=== PATIENT | male | born 1960 | race Caucasian/White ===

== ENCOUNTER 2022-04-12 13:48 | Inpatient (IN) | payer MEDICARE, MEDICAID ==
[~2022-04-12] VITALS: Ht 180.3 cm; Wt 68.9 kg
[~2022-04-12 13:48] MED LIST: CATAPRES 0.1MG0.1 MG PO; CELEXA40 MG PO; DEPAKOTE ER 50500 MG PO; HALDOL 2MG T2 MG/TAB PO; HALDOL 5MG T5 MG/TAB PO; KLONOPIN 1MG1 MG PO; ZYPREXA20 MG PO
[2022-04-12 14:48] LABS: ARTERIAL BLD GAS O2 SATURATION 94.2 % (92-100); ARTERIAL BLOOD GAS BASE EXCESS 4.6 (-2-2); ARTERIAL BLOOD GAS HCO3 31.3 meq/L (22-26); ARTERIAL BLOOD GAS PCO2 56.5 mmHg (35-45); ARTERIAL BLOOD GAS PO2 80.4 mmHg (80-100); ARTERIAL BLOOD GAS pH 7.36 (7.35-7.45)
[2022-04-12 14:56] LABS: ALBUMIN 3.3 gm/dL (3.4-4.8); BILIRUBIN,TOTAL 0.2 mg/dL (0.2-1.2); CALCIUM 9.3 mg/dL (8.4-10.2); CREATININE, serum 0.74 mg/dL (0.72-1.25); POTASSIUM 4.2 mmol/L (3.5-4.5); TOTAL PROTEIN 8.2 gm/dL (6.2-8.1)
[2022-04-12 15:02] LABS: TROPONIN-I 0.018 ng/mL (0.00-0.033)
[2022-04-12 15:05] LABS: BASO % 0.2 % (0.0-2.0); EOS % 0.2 % (0.0-4.0); GRAN # 4.5 K/mm3 (1.4-6.5); GRAN % 79.2 % (42.2-75.2); HEMOGLOBIN 10.3 g/dl (13.5-18.0); LYMPH # 0.3 K/mm3 (1.2-3.4); LYMPH % 4.4 % (20.0-51.0); MEAN CELL VOLUME 84 fl (80.0-100.0); MEAN CORPUSCULAR HEMOGLOBIN 27 pg (27-31); MEAN CORPUSCULAR HGB CONC 32 g/dl (33.0-37.0); MEAN PLATELET VOLUME 9.6 fl (7.4-10.4); MONO # 0.9 K/mm3 (0.1-0.6); MONO % 15.5 % (1.7-9.3); PLATELET COUNT 159 K/mm3 (130-400); RED BLOOD COUNT 3.89 M/mm3 (4.20-5.60); REDCELL DISTRIBUTION WIDTH-CV 16.7 % (11.5-14.5)
[2022-04-12 15:06] LABS: HEMATOCRIT 32.7 % (42.0-52.0)
[2022-04-12] MEDS ORDERED: PRILOSEC 20MG20 MG PO (16:54)
[2022-04-12] MEDS ORDERED: DESYREL 50MG50 MG PO (16:55)
[2022-04-12] MEDS ORDERED: MELATIN 3 MG-11 TAB PO (16:55)
--- NOTE | 2022-04-12 17:45 | NUR ---
arrived on unit per stretcher, stood up from stretcher and took two steps to bed,
[2022-04-12 17:46] VITALS: BP 125/62; PULSE 81; TEMP 98
[2022-04-12] MEDS ORDERED: CATAPRES 0.1MG0.1 MG PO (18:23)
--- NOTE | 2022-04-12 18:45 | NUR ---
sitting up in bed eating supper, caregiver remains at bedside and is assisting him, the caregiver assisted him up to bathroom earlier and he voided, bedside shift report given to JARET Gonzalez
[2022-04-12 19:44] VITALS: BP 137/73; PULSE 71; TEMP 97.6
--- NOTE | 2022-04-12 21:45 | NUR ---
Patient alert and has a developmental delay and has a paper bag as his comfort item that he always needs near by; head to toe assessment done, see shift assessment, looks comfortable and doesn't look like he's in pain or short of air, remains on oxygen at 2LPM, call light within reach, fall precautions in place.
[2022-04-12 23:40] VITALS: BP 151/90; PULSE 88; TEMP 98.4
[2022-04-13 02:59] VITALS: BP 165/84; PULSE 97; TEMP 103
--- NOTE | 2022-04-13 03:25 | NUR ---
Called Emelyn, the PA d/t patient's temp is 103.
--- NOTE | 2022-04-13 03:50 | NUR ---
Called Emelyn the PA at this time d/t patient is agitated, always asking for a pop, and call light always goes off, got an order for seroquel.
--- NOTE | 2022-04-13 03:50 | NUR ---
Called Emelyn, the PA at this time d/t patient is agitated, keeps asking for a pop, and the call light always goes off, got an order for Ativan.
[2022-04-13 04:54] VITALS: TEMP 99.8
[2022-04-13 06:57] LABS: CALCIUM 7.7 mg/dL (8.4-10.2); CREATININE, serum 0.56 mg/dL (0.72-1.25); POTASSIUM 4.1 mmol/L (3.5-4.5)
[2022-04-13 07:00] LABS: MEAN CELL VOLUME 86 fl (80.0-100.0); MEAN CORPUSCULAR HGB CONC 31 g/dl (33.0-37.0); MEAN PLATELET VOLUME 10.7 fl (7.4-10.4); PLATELET COUNT 139 K/mm3 (130-400); RED BLOOD COUNT 3.45 M/mm3 (4.20-5.60); REDCELL DISTRIBUTION WIDTH-CV 16.5 % (11.5-14.5)
[2022-04-13 07:09] LABS: HEMATOCRIT 29.7 % (42.0-52.0); HEMOGLOBIN 9.2 g/dl (13.5-18.0); MEAN CORPUSCULAR HEMOGLOBIN 27 pg (27-31)
[2022-04-13 08:00] VITALS: BP 174/77; PULSE 94
[2022-04-13 08:46] LABS: ANISOCYTOSIS 1+; BAND 13 % (0-10); HYPOCHROMIA 3+; LYMPHOCYTE 3 % (20.0-51.0); METAMYELOCYTE 1 % (0-0); NEUTROPHILS 60 % (42.0-75.2)
[2022-04-13 12:45] VITALS: BP 147/91; PULSE 83; TEMP 100
--- NOTE | 2022-04-13 14:13 | NUR ---
The patient resides at the alf: [facility]. VIVIANA met with the patient's auto damage estimator, Theresa (ph#[phone]), from [facility]. She states that the patient is normally independent with ADLs at the alf, but has to be monitored. She states that the patient does have a guardian, Vasu Harley (ph#[phone]). Theresa states that she will have [facility] fax a copy of the court document to the surgical unit. She states that we can contact her, when the patient is ready to discharge. The patient's PCP is Dr. Ean Coughlin. VIVIANA contacted Vasu "Trinh" Cricket. Trinh states that she is not related to the patient and is just a court appointed guardian. She confirms that the plan is for the patient to return back to [facility] upon discharge. VIVIANA faxed updates to [facility] Fx#[phone]. *Discharge plan: [facility]*
[2022-04-13 15:44] VITALS: BP 152/82; PULSE 98; TEMP 101.2
--- NOTE | 2022-04-13 16:24 | NUR ---
PATIENT RUNNING LOW GRADE TEMP 100.0. TYLENOL 625 MG ADMINISTERED. WILL RECHECK TEMP
--- NOTE | 2022-04-13 20:04 | NUR ---
Patient remains to be on oxygen at 3LPM via nasal prong, VSS, head to toe assessment done, continuous to be getting out of bed, took HS meds without difficulty with pudding, fall precautions in place, bed alarm on, with tele sitter.
[2022-04-13 20:05] VITALS: BP 149/85; PULSE 91; TEMP 98.5
--- NOTE | 2022-04-14 00:49 | NUR ---
Patient resting in bed with eyes closed, oxygen saturation of 94% at this time.
[2022-04-14 05:17] VITALS: BP 95/53; PULSE 75; TEMP 99.1
[2022-04-14 07:06] LABS: BASO % 0.4 % (0.0-2.0); GRAN # 3.4 K/mm3 (1.4-6.5); GRAN % 67.6 % (42.2-75.2); LYMPH # 0.8 K/mm3 (1.2-3.4); LYMPH % 16.1 % (20.0-51.0); MEAN CELL VOLUME 85 fl (80.0-100.0); MEAN CORPUSCULAR HGB CONC 31 g/dl (33.0-37.0); MEAN PLATELET VOLUME 10.7 fl (7.4-10.4); MONO # 0.8 K/mm3 (0.1-0.6); MONO % 15.9 % (1.7-9.3); PLATELET COUNT 141 K/mm3 (130-400); RED BLOOD COUNT 3.66 M/mm3 (4.20-5.60); REDCELL DISTRIBUTION WIDTH-CV 16.4 % (11.5-14.5)
[2022-04-14 07:08] LABS: HEMOGLOBIN 9.7 g/dl (13.5-18.0); MEAN CORPUSCULAR HEMOGLOBIN 27 pg (27-31)
[2022-04-14 07:29] LABS: CALCIUM 7.9 mg/dL (8.4-10.2); CREATININE, serum 0.62 mg/dL (0.72-1.25); POTASSIUM 4.2 mmol/L (3.5-4.5)
[2022-04-14 08:37] VITALS: BP 130/60; PULSE 60; TEMP 97.6
--- NOTE | 2022-04-14 11:48 | NUR ---
SW faxed updates to [facility].
[2022-04-14 13:40] VITALS: BP 140/58; PULSE 54; TEMP 98.6
[2022-04-14 17:13] VITALS: BP 135/50; PULSE 52; TEMP 98.6
[2022-04-14 17:52] VITALS: BP 147/94; PULSE 97
[2022-04-14 19:25] VITALS: BP 144/93; PULSE 102; TEMP 98.6
--- NOTE | 2022-04-14 20:00 | NUR ---
Patient still trying to get out of the bed, HS meds given with chocolate pudding and took them without any difficulty, still on 4LPM via nasal prong, fall precautions in place, bed alarm on.
[2022-04-15] VITALS (409 sets, daily range): BP systolic 113–148; BP diastolic 66–99; PULSE 45–87; TEMP 97.7–98.7; O2SAT 76–100
--- NOTE | 2022-04-15 03:04 | NUR ---
Patient resting in bed, eyes closed, bed alarm on.
[2022-04-15 06:36] LABS: EOS % 0.6 % (0.0-4.0); LYMPH % 27.8 % (20.0-51.0); MEAN CELL VOLUME 87 fl (80.0-100.0); MEAN CORPUSCULAR HGB CONC 31 g/dl (33.0-37.0); MEAN PLATELET VOLUME 10.3 fl (7.4-10.4); MONO # 0.5 K/mm3 (0.1-0.6); MONO % 13.3 % (1.7-9.3); PLATELET COUNT 151 K/mm3 (130-400); RED BLOOD COUNT 3.53 M/mm3 (4.20-5.60); REDCELL DISTRIBUTION WIDTH-CV 15.9 % (11.5-14.5)
[2022-04-15 06:37] LABS: HEMATOCRIT 30.6 % (42.0-52.0); HEMOGLOBIN 9.4 g/dl (13.5-18.0); MEAN CORPUSCULAR HEMOGLOBIN 27 pg (27-31)
[2022-04-15 06:44] LABS: CALCIUM 8.1 mg/dL (8.4-10.2); CREATININE, serum 0.56 mg/dL (0.72-1.25); POTASSIUM 4.5 mmol/L (3.5-4.5)
--- NOTE | 2022-04-15 07:14 | NUR ---
Called Dr. Kaye and could not get a hold of her. Left a message for a critical result of chloride.
[2022-04-15 09:51] LABS: ARTERIAL BLD GAS O2 SATURATION 93.8 % (92-100); ARTERIAL BLD GAS TCO2 CT 43.2; ARTERIAL BLOOD GAS HCO3 40.8 meq/L (22-26); ARTERIAL BLOOD GAS PO2 73.9 mmHg (80-100); ARTERIAL BLOOD GAS pH 7.32 (7.35-7.45)
[2022-04-15 09:52] LABS: ARTERIAL BLOOD GAS PCO2 80.2 mmHg (35-45)
--- NOTE | 2022-04-15 13:35 | NUR ---
PATIENT ALERT TO SELF. PATIENT IN BED WITH O2 APPLIED. ASSESSMENT PERFORMED. AM MEDS ADMINISTERED. PRODUCTIVE COUGH, LUNGS WITH INS/EXP WHEEZING. PATIENT IN NO APPARENT PAIN. DIETARY SWITCHED DIET TO PUREED WITH THIN LIQUIDS (SMALL SIPS AT A TIME). PATIENT IN ROOM WITH TELESITTER AND PCT SITTING.
--- NOTE | 2022-04-15 15:20 | NUR ---
PT ARRIVED TO ICU 7, MINIMALLY VERBAL, REPETITIVE WITH A FEW WORDS, UNABLE TO DETERMINE ORIENTATION. PT IS ALERT. PT IS FROM [facility], HAS SOME COGNITIVE DELAYS. PT NEEDS CONSTANT REDIRECTION TO REMAIN IN BED AND ON POC. PT ARRIVES WITHOUT IV ACCESS, KATIE IS PREPPING FOR PICC PLACEMENT. MEDIA INTERN ARRIVED WITH PT TO SIT.
[2022-04-15 20:03] LABS: ARTERIAL BLOOD GAS pH 7.37 (7.35-7.45)
[2022-04-15 20:04] LABS: ARTERIAL BLD GAS O2 SATURATION 88.5 % (92-100); ARTERIAL BLOOD GAS BASE EXCESS 15.3 (-2-2); ARTERIAL BLOOD GAS HCO3 43.8 meq/L (22-26); ARTERIAL BLOOD GAS PCO2 78.4 mmHg (35-45); ARTERIAL BLOOD GAS PO2 58.6 mmHg (80-100)
--- NOTE | 2022-04-15 20:46 | NUR ---
RECEIVED REPORT FROM DAY SHIFT NURSE. PT IS RESTING IN BED. HR WAS LOW AND PT WAS MODERATELY SEDATED NURSE TITRATED PRECEDEX DOWN. OTHER VITALS ARE STABLE AT THIS TIME. WILL CONTINUE TO MONTIOR PT THROUGHOUT THE SHIFT.
[2022-04-15 20:55] LABS: ARTERIAL BLD GAS O2 SATURATION 99.6 % (92-100); ARTERIAL BLD GAS TCO2 CT 43.3; ARTERIAL BLOOD GAS BASE EXCESS 11.4 (-2-2); ARTERIAL BLOOD GAS HCO3 40.7 meq/L (22-26)
[2022-04-15 20:56] LABS: ARTERIAL BLOOD GAS PCO2 84.1 mmHg (35-45); ARTERIAL BLOOD GAS PO2 388.6 mmHg (80-100)
[2022-04-16] VITALS (1239 sets, daily range): BP systolic 78–136; BP diastolic 58–91; PULSE 46–69; TEMP 96.3–97.5; O2SAT 74–100
[2022-04-16 00:04] LABS: ARTERIAL BLD GAS O2 SATURATION 98.5 % (92-100); ARTERIAL BLD GAS TCO2 CT 39.5; ARTERIAL BLOOD GAS HCO3 38.2 meq/L (22-26); ARTERIAL BLOOD GAS PCO2 41.1 mmHg (35-45); ARTERIAL BLOOD GAS PO2 107.2 mmHg (80-100); ARTERIAL BLOOD GAS pH 7.59 (7.35-7.45)
--- NOTE | 2022-04-16 03:26 | NUR ---
2034 ABG SHOWED INCREASED CO2 LEVELS WHILE ON THE BIPAP. HOSPITALIST WAS NOTIFIED. WANTING TO INTUBATE DUE TO THE INCREASE CO2. 2132 ANESTHESIA WAS NOTIFIED OF PLAN TO INTUBATE. 2139 PT'S GUARDIAN WAS UPDATED AND GAVE CONSENT FOR INTUBATION VIA TELEPHONE WERE TWO NURSES VERIFIED. 2206 THE CNRA, AMIRA JIMENEZ, GAVE SEDATION MEDS AND PARALYTIC MEDS PER EMAR. 0 PT WAS INTUBATED, TUBE PLACED 21 AT TEETH. COLOR CHANGE WAS NOTED. ASSESSED LUNG SOUNDS IN ALL LOBES. 2214 OG TUBE WAS PLACED. PORTABLE XRAY WAS DONE. THE CNRA, AMIRA JIMENEZ VERIFIED PLACEMENT OF BOTH ET TUBE AND OG. THE ET TUBE WAS ADVANCED 1 CM. ET TUBE IS NOW 22 CM AT TEETH. OG IS 58 CM AT TEETH. 2299 PT HAVING EPISODES OF DESATUATION TO 80%, CALL TO TELE ICU. DR. NO STATES TO INCREASE PEEP TO 10 AND REPEAT ABG IN 30 MINUTES.
--- NOTE | 2022-04-16 03:58 | NUR ---
D/C FROM 0.2 MCG/KG/HR DUE TO PT NEEDING TO BE INTUBATED AND PT WILL BE PUT ON SEDATION.
[2022-04-16 04:19] LABS: BASO % 0.2 % (0.0-2.0); EOS # 0.1 K/mm3 (0.0-0.7); EOS % 1.6 % (0.0-4.0); GRAN # 2.8 K/mm3 (1.4-6.5); GRAN % 64.7 % (42.2-75.2); LYMPH % 23.6 % (20.0-51.0); MEAN CELL VOLUME 87 fl (80.0-100.0); MEAN CORPUSCULAR HGB CONC 31 g/dl (33.0-37.0); MONO # 0.4 K/mm3 (0.1-0.6); MONO % 9.7 % (1.7-9.3); PLATELET COUNT 125 K/mm3 (130-400); REDCELL DISTRIBUTION WIDTH-CV 15.6 % (11.5-14.5)
[2022-04-16 04:23] LABS: HEMATOCRIT 29.5 % (42.0-52.0); MEAN CORPUSCULAR HEMOGLOBIN 26 pg (27-31)
[2022-04-16 04:39] LABS: ARTERIAL BLD GAS O2 SATURATION 99.5 % (92-100); ARTERIAL BLD GAS TCO2 CT 35.9; ARTERIAL BLOOD GAS BASE EXCESS 11.3 (-2-2); ARTERIAL BLOOD GAS HCO3 34.6 meq/L (22-26); ARTERIAL BLOOD GAS PCO2 40.4 mmHg (35-45); ARTERIAL BLOOD GAS pH 7.55 (7.35-7.45)
[2022-04-16 04:42] LABS: CALCIUM 8.6 mg/dL (8.4-10.2); CREATININE, serum 0.6 mg/dL (0.72-1.25); MAGNESIUM 1.9 mg/dL (1.6-2.6); PHOSPHOROUS 2.1 mg/dL (2.3-4.7); POTASSIUM 3.6 mmol/L (3.5-4.5)
[2022-04-16 04:42] LABS: ARTERIAL BLOOD GAS PO2 217.5 mmHg (80-100)
--- NOTE | 2022-04-16 05:19 | NUR ---
PT WAS INTUBATED AT 0 ON THE . WILL NOT DO SEDATION VACTION THIS SHIFT.
--- NOTE | 2022-04-16 06:58 | NUR ---
PT IS LYING IN BED. PT WILL REACT TO PAIN. PT WILL NOT FOLLOW COMMANDS. VITALS ARE STABLE AT THIS TIME. WILL GIVE REPORT TO DAY SHIFT NURSE.
--- NOTE | 2022-04-16 09:54 | NUR ---
PT SELF EXTUBATED. 09. SATS IN 70S. PT IS GIVEN BREATHS VIA AMBUBAG. ER DOCTOR PAGED FOR REINTUBATION. 8.0 TUBE PLACED 26 AT TEETH AT 0929. PT CURRENTLY WELL SEDATED. ALL VSS.
--- NOTE | 2022-04-16 11:07 | NUR ---
gospel worker spoke with patient's Debbie Rawls's bilingual patient support caseworker, Nadira ##[phone] and advised that patient was now on the ventilator. Worker confirmed that the guardianship paperwork is on patient's medicare record.
[2022-04-16 13:08] LABS: ARTERIAL BLD GAS O2 SATURATION 98.3 % (92-100); ARTERIAL BLOOD GAS BASE EXCESS 7.1 (-2-2); ARTERIAL BLOOD GAS HCO3 30.8 meq/L (22-26); ARTERIAL BLOOD GAS PCO2 40.1 mmHg (35-45); ARTERIAL BLOOD GAS PO2 116.7 mmHg (80-100)
--- NOTE | 2022-04-16 17:07 | NUR ---
SEDATION VACATION NOT APPROPRIATE AT THIS TIME. PT IS REQUIRING INCREASED AMOUNTS OF SEDATION THIS AFTERNOON DUE TO AGITATION AND COUGHING AGAINST VENT.
[2022-04-17] VITALS (919 sets, daily range): BP systolic 88–170; BP diastolic 60–107; PULSE 47–88; TEMP 96.7–98.1; O2SAT 60–100
[2022-04-17 04:42] LABS: ARTERIAL BLD GAS O2 SATURATION 97.5 % (92-100); ARTERIAL BLD GAS TCO2 CT 32.7; ARTERIAL BLOOD GAS BASE EXCESS 6.9 (-2-2); ARTERIAL BLOOD GAS HCO3 31.4 meq/L (22-26); ARTERIAL BLOOD GAS PCO2 44.3 mmHg (35-45); ARTERIAL BLOOD GAS PO2 100.6 mmHg (80-100); ARTERIAL BLOOD GAS pH 7.47 (7.35-7.45)
[2022-04-17 05:33] LABS: BASO % 0.2 % (0.0-2.0); EOS # 0.1 K/mm3 (0.0-0.7); EOS % 1.7 % (0.0-4.0); GRAN # 3.3 K/mm3 (1.4-6.5); GRAN % 61.9 % (42.2-75.2); HEMOGLOBIN 10.5 g/dl (13.5-18.0); LYMPH # 1.4 K/mm3 (1.2-3.4); LYMPH % 25.6 % (20.0-51.0); MEAN CELL VOLUME 83 fl (80.0-100.0); MEAN CORPUSCULAR HEMOGLOBIN 26 pg (27-31); MEAN CORPUSCULAR HGB CONC 32 g/dl (33.0-37.0); MEAN PLATELET VOLUME 10.1 fl (7.4-10.4); MONO # 0.6 K/mm3 (0.1-0.6); MONO % 10.4 % (1.7-9.3); PLATELET COUNT 144 K/mm3 (130-400); RED BLOOD COUNT 3.99 M/mm3 (4.20-5.60); REDCELL DISTRIBUTION WIDTH-CV 16.4 % (11.5-14.5)
[2022-04-17 05:51] LABS: CALCIUM 8.5 mg/dL (8.4-10.2); CREATININE, serum 0.61 mg/dL (0.72-1.25); MAGNESIUM 2.2 mg/dL (1.6-2.6); PHOSPHOROUS 4.8 mg/dL (2.3-4.7); POTASSIUM 4.1 mmol/L (3.5-4.5)
--- NOTE | 2022-04-17 05:58 | NUR ---
PATIENT COMES VERY SHAKEY UNABLE TO CALM PATIENT SO CHANGE SEDATION AND PAIN MEDS RENEW
--- NOTE | 2022-04-17 11:34 | NUR ---
Developer Evangelist Marina contacts this Trauma Surgeon to seek after hours telephone contact for [facility] to request a patient sitter for patient extubation. All numbers contacted via patient medical record and online search are business hours only. Trauma Surgeon attempted to contact telephone number in patient face sheet, noting selected nursing and only VM available instructing business hours line. Trauma Surgeon unable to identify any new numbers via online search. Trauma Surgeon reached out to Social Work/Case Management Team members requesting follow up with after hours contact.
[2022-04-17 11:59] LABS: ARTERIAL BLD GAS O2 SATURATION 92.1 % (92-100); ARTERIAL BLD GAS TCO2 CT 33.7; ARTERIAL BLOOD GAS BASE EXCESS 7.9 (-2-2); ARTERIAL BLOOD GAS HCO3 32.3 meq/L (22-26); ARTERIAL BLOOD GAS PCO2 44.5 mmHg (35-45); ARTERIAL BLOOD GAS pH 7.48 (7.35-7.45)
--- NOTE | 2022-04-17 12:15 | NUR ---
Marble Cleaner confirms with Fish And Wildlife Technician a nursing contact number was identified and a sitter is coming. Patient was deemed no longer needing intubation and is now extubated. [place] MOREL/Case Management superivsor updated. *Social work continues to follow*
--- NOTE | 2022-04-17 17:25 | NUR ---
PT EXTUBATED AT 1218 WITH RT AND RN BEDSIDE. PT PLACED ON 4L OM. TOLERATED WELL. PT HAS HAD VISITORS FROM [facility] TODAY ALONG WITH [facility] WHO HAS BEEN SITTING WITH THE PATIENT. THE PATIENT APPEARS MUCH MORE COMFORTABLE WITH [facility] NEAR BY. PT was placed on precedex prior to extubation due to agitation when sedation was lowered. Precdex is being titrated down according to eMAR instructions. Pt is currently resting in bed with [facility] from [facility] bedside.
--- NOTE | 2022-04-17 20:50 | NUR ---
BAUTISTA REMOVED AT 1944 CAUSE PATIENT KEPT WANTING TO GET UP TO USE REST ROOM, CONFIRMED ORDER FROM [facility]
[2022-04-18] VITALS (19 sets, daily range): BP systolic 145–180; BP diastolic 93–119; PULSE 77–100; TEMP 98–99; O2SAT 84–96
[2022-04-18 05:08] LABS: BASO % 0.2 % (0.0-2.0); EOS # 0.1 K/mm3 (0.0-0.7); EOS % 1.2 % (0.0-4.0); GRAN # 4.5 K/mm3 (1.4-6.5); GRAN % 74.2 % (42.2-75.2); HEMOGLOBIN 10.4 g/dl (13.5-18.0); LYMPH # 0.8 K/mm3 (1.2-3.4); LYMPH % 12.5 % (20.0-51.0); MEAN CELL VOLUME 83 fl (80.0-100.0); MEAN CORPUSCULAR HEMOGLOBIN 27 pg (27-31); MEAN CORPUSCULAR HGB CONC 32 g/dl (33.0-37.0); MEAN PLATELET VOLUME 10.5 fl (7.4-10.4); MONO # 0.7 K/mm3 (0.1-0.6); MONO % 11.6 % (1.7-9.3); PLATELET COUNT 160 K/mm3 (130-400); RED BLOOD COUNT 3.92 M/mm3 (4.20-5.60)
[2022-04-18 05:18] LABS: CREATININE, serum 0.58 mg/dL (0.72-1.25); PHOSPHOROUS 2.1 mg/dL (2.3-4.7); POTASSIUM 3.6 mmol/L (3.5-4.5)
[2022-04-18 05:20] LABS: HEMATOCRIT 32.5 % (42.0-52.0)
--- NOTE | 2022-04-18 07:00 | NUR ---
Pt sitting up in bed. Pt reoriented, bed alarm active, water given. Pt placed back on 3L NC.
--- NOTE | 2022-04-18 19:30 | NUR ---
Received report from JARET Hopson. Patient resting quietly in bed. [facility] nurse, Thersea, at bedside. Patient currently receiving 2L oxygen via nasal cannula satting 97% - oxygen titrated off and tolerated well while awake.
[2022-04-19] VITALS: BP 142/92; PULSE 75; TEMP 98.2
[2022-04-19 04:00] VITALS: BP 126/82; PULSE 75; TEMP 98.1
--- NOTE | 2022-04-19 04:00 | NUR ---
Patient has been sleeping quietly since roughly 2129. Vitals remain within normal limits; he continues to receive 2L oxygen via nasal cannula. Does not appear to be in any discomfort at this time. Bed in lowest position, all alarms on. Call light within reach.
[2022-04-19 06:29] LABS: BASO % 0.3 % (0.0-2.0); EOS # 0.1 K/mm3 (0.0-0.7); EOS % 1.6 % (0.0-4.0); GRAN # 4.3 K/mm3 (1.4-6.5); GRAN % 63.1 % (42.2-75.2); HEMOGLOBIN 11.1 g/dl (13.5-18.0); LYMPH # 1.5 K/mm3 (1.2-3.4); LYMPH % 22.5 % (20.0-51.0); MEAN CELL VOLUME 84 fl (80.0-100.0); MEAN CORPUSCULAR HEMOGLOBIN 26 pg (27-31); MEAN CORPUSCULAR HGB CONC 32 g/dl (33.0-37.0); MEAN PLATELET VOLUME 10.2 fl (7.4-10.4); MONO # 0.8 K/mm3 (0.1-0.6); MONO % 11.9 % (1.7-9.3); PLATELET COUNT 194 K/mm3 (130-400); REDCELL DISTRIBUTION WIDTH-CV 16.4 % (11.5-14.5)
[2022-04-19 06:43] LABS: HEMATOCRIT 35.1 % (42.0-52.0)
[2022-04-19 06:50] LABS: ALBUMIN 2.8 gm/dL (3.4-4.8); BILIRUBIN,TOTAL 0.5 mg/dL (0.2-1.2); CALCIUM 9.3 mg/dL (8.4-10.2); CREATININE, serum 0.59 mg/dL (0.72-1.25); MAGNESIUM 2.2 mg/dL (1.6-2.6); POTASSIUM 3.9 mmol/L (3.5-4.5); TOTAL PROTEIN 7.9 gm/dL (6.2-8.1)
--- NOTE | 2022-04-19 07:30 | NUR ---
REPORT RECEIVED FROM MARIE RAYGOZA. PT AWAKE AND ALERT, NEEDS SOME REORIENTATION TO USING CALL LIGHT. PT STATED HE WANTED BREAKFAST. NO FURTHER NEEDS AT THIS TIME.
[2022-04-19 08:00] VITALS: PULSE 102; TEMP 97.1
--- NOTE | 2022-04-19 11:24 | NUR ---
PT AMBULATED WITH THIS NURSE AND PT, AMBULATED 250 FEET.
[2022-04-19 12:00] VITALS: PULSE 93
--- NOTE | 2022-04-19 14:20 | NUR ---
body worker spoke with [facility] bottle caser, Nadira and nurse, Janie and advised that patient will discharge today. [facility] Mar[facility] staff is present with patient and will transport patient to their nursing home. Worker contacted patient's guardian, Divine, and read the IMM form and obtained consent. Worker emailed form to Divine and advised of patient's discarge back to [facility] nursing home today via Ana [facility].
--- NOTE | 2022-04-19 17:37 | NUR ---
1405: pt discharged to [facility] with abbi brady from facility. picc removed from j[facility] anton[facility] snider with AIV. site to [facility] was covered with gauze and tegaderm, pt remained flat for 30 minutes, site was cdi prior to discharge and instructions for care were discussed with abbi brady. pt escorted out via WC without issues.
== END 2022-04-19 14:05 | DRG 871 ==
LOC: COL.ER 13:48 → SURG 15:06 → ICU 04-15 14:55
PROVIDERS: Emergency Medicine; Internal Medicine Pulmonary Disease; Nurse Practitioner Family; Physician Assistant; ADMIT Student in an Organized Health Care Education/Training Program
PROC: 02HV33Z Insertion of Infusion Device into Superior Vena Cava, Percutaneous Approach (ICD-10-PCS; principal; 2022-04-15)
PROC: 0BH17EZ Insertion of Endotracheal Airway into Trachea, Via Natural or Artificial Opening (ICD-10-PCS; 2022-04-15)
PROC: 5A1935Z Respiratory Ventilation, Less than 24 Consecutive Hours (ICD-10-PCS; 2022-04-15)
PROC: 0BH17EZ Insertion of Endotracheal Airway into Trachea, Via Natural or Artificial Opening (ICD-10-PCS; 2022-04-16)
PROC: 5A1945Z Respiratory Ventilation, 24-96 Consecutive Hours (ICD-10-PCS; 2022-04-16)
DX: A41.89 Other specified sepsis (principal); J18.9 Pneumonia, unspecified organism; J96.01 Acute respiratory failure with hypoxia; J96.02 Acute respiratory failure with hypercapnia; E87.1 Hypo-osmolality and hyponatremia; E87.3 Alkalosis; J90 Pleural effusion, not elsewhere classified; F20.9 Schizophrenia, unspecified; Z20.822 Contact with and (suspected) exposure to COVID-19; J10.1 Influenza due to other identified influenza virus with other respiratory manifestations; K21.9 Gastro-esophageal reflux disease without esophagitis; I77.810 Thoracic aortic ectasia; D64.9 Anemia, unspecified; E87.6 Hypokalemia; E83.39 Other disorders of phosphorus metabolism; B95.62 Methicillin resistant Staphylococcus aureus infection as the cause of diseases classified elsewhere; Z23 Encounter for immunization
CPT/HCPCS: A4314; C1751; J0456; J0696; J1650; J2250; J2704; J3010; J3480; J7030; J7050; Q9967

== ENCOUNTER 2022-06-19 11:26 | Emergency (ER) | payer MEDICARE, MEDICAID ==
[~2022-06-19] VITALS: Ht 70 cm; Wt 65.9 kg
[~2022-06-19 11:26] MED LIST changes: +CLEOCIN HCL300 MG PO; +DESYREL 50MG50 MG PO; +MELATIN 3 MG-11 TAB PO; +PRILOSEC 20MG20 MG PO
[2022-06-19 11:29] VITALS: TEMP 97.1
[2022-06-19 12:11] LABS: BASO % 0.9 % (0.0-2.0); EOS # 0.1 K/mm3 (0.0-0.7); EOS % 2.6 % (0.0-4.0); GRAN # 1.7 K/mm3 (1.4-6.5); GRAN % 50.7 % (42.2-75.2); HEMOGLOBIN 10.9 g/dl (13.5-18.0); LYMPH # 1.2 K/mm3 (1.2-3.4); LYMPH % 35.3 % (20.0-51.0); MEAN CELL VOLUME 87 fl (80.0-100.0); MEAN CORPUSCULAR HEMOGLOBIN 27 pg (27-31); MEAN CORPUSCULAR HGB CONC 30 g/dl (33.0-37.0); MEAN PLATELET VOLUME 10.8 fl (7.4-10.4); MONO # 0.4 K/mm3 (0.1-0.6); MONO % 10.5 % (1.7-9.3); PLATELET COUNT 156 K/mm3 (130-400); REDCELL DISTRIBUTION WIDTH-CV 16.4 % (11.5-14.5)
[2022-06-19 12:16] LABS: HEMATOCRIT 35.8 % (42.0-52.0)
[2022-06-19 12:25] LABS: ALANINE AMINOTRANSFERASE 11 U/L (0-55); ALBUMIN 3.3 gm/dL (3.4-4.8); ALKALINE PHOSPHATASE 58 U/L (40-150); ANION GAP 8 mmol/L (7-16); AST,SGOT 21 U/L (5-34); BILIRUBIN,TOTAL 0.2 mg/dL (0.2-1.2); BLOOD UREA NITROGEN 9 mg/dL (8-26); CARBON DIOXIDE 31 mmol/L (23-31); CHLORIDE 98 mmol/L (98-107); CREATININE, serum 0.66 mg/dL (0.72-1.25); GLUCOSE 101 mg/dL (70-99); POTASSIUM 4.1 mmol/L (3.5-4.5); SODIUM 137 mmol/L (136-145); TOTAL PROTEIN 7.6 gm/dL (6.2-8.1)
[2022-06-19 12:32] LABS: TROPONIN-I < 0.010 ng/mL (0.00-0.033)
[2022-06-19 14:05] VITALS: BP 141/102; PULSE 56
== END 2022-06-19 14:05 | disposition home or self-care (01) ==
LOC: COL.ER 11:26
PROVIDERS: Emergency Medicine
DX: J96.90 Respiratory failure, unspecified, unspecified whether with hypoxia or hypercapnia (principal); D72.819 Decreased white blood cell count, unspecified; Z28.310 Unvaccinated for COVID-19; Z20.822 Contact with and (suspected) exposure to COVID-19

== ENCOUNTER 2023-06-30 13:32 | Emergency (ER) | payer MEDICARE, MEDICAID ==
[~2023-06-30 13:32] MED LIST changes: +PAXLOVID CO-PA1 EACH PO
[2023-06-30 13:41] VITALS: BP 158/92; TEMP 97.9
[2023-06-30] MEDS ORDERED: CEPHALEXIN500 M1 PO (14:25)
[2023-06-30 14:42] VITALS: PULSE 92
== END 2023-06-30 14:43 | disposition home or self-care (01) ==
LOC: COL.ER 13:32
DX: M79.89 Other specified soft tissue disorders (principal); R62.50 Unspecified lack of expected normal physiological development in childhood

== ENCOUNTER → 2023-11-07 | Outpatient (CLI) | payer MEDICARE, MEDICAID ==
[~2023-11-07] MED LIST changes: +CEPHALEXIN500 M1 PO
== END ==
LOC: COL.RAD 09:15
DX: R06.00 Dyspnea, unspecified (principal)

== ENCOUNTER 2023-11-14 11:55 | Emergency (ER) | payer MEDICARE, MEDICAID ==
[2023-11-14 14:37] VITALS: BP 140/70; PULSE 72; TEMP 98.4
== END 2023-11-14 14:34 | disposition home or self-care (01) ==
LOC: COL.ER 11:55
DX: M19.011 Primary osteoarthritis, right shoulder (principal); M16.12 Unilateral primary osteoarthritis, left hip